=== PATIENT | male | born 1960 | race Asian ===

== ENCOUNTER 2021-04-06 16:38 | Emergency (ER) | payer OTHER ==
[~2021-04-06] VITALS: Ht 185.4 cm; Wt 93.0 kg
[2021-04-06 16:45] VITALS: BP 165/93; TEMP 98.9
[2021-04-06 17:07] LABS: PLATELET COUNT 300 K/uL (142-355)
[2021-04-06 17:15] LABS: POTASSIUM 3.8 mmol/L (3.6-5.2)
[2021-04-06 17:27] LABS: PARTIAL THROMBOPLASTIN TIME 25.8 SECONDS (24.5-33.6)
== END 2021-04-06 18:15 | disposition home or self-care (01) ==
LOC: ED 16:38
PROVIDERS: Emergency Medicine
DX: M19.011 Primary osteoarthritis, right shoulder (principal); M19.021 Primary osteoarthritis, right elbow; M16.11 Unilateral primary osteoarthritis, right hip; M25.511 Pain in right shoulder; M25.521 Pain in right elbow; M25.551 Pain in right hip
CPT/HCPCS: 80053; 82550; 83880; 84484; 85027; 85610; 85730; 93005; 96372; 99283; 99284; J1885

== ENCOUNTER 2021-05-01 18:07 | Emergency (ER) | payer OTHER ==
[~2021-05-01] VITALS: Ht 185.4 cm; Wt 93.0 kg
[2021-05-01 20:39] LABS: PLATELET COUNT 149 K/uL (142-355)
[2021-05-01 23:30] VITALS: BP 158/86; TEMP 97.7
== END 2021-05-01 23:30 | disposition short-term general hospital (02) ==
LOC: ED 18:07
PROVIDERS: Emergency Medicine Emergency Medical Services
PROC: 2W3DX1Z Immobilization of Left Lower Arm using Splint (ICD-10-PCS; principal; 2021-05-01)
DX: I63.9 Cerebral infarction, unspecified (principal); G83.14 Monoplegia of lower limb affecting left nondominant side; F17.210 Nicotine dependence, cigarettes, uncomplicated; W18.39XA Other fall on same level, initial encounter; Y92.89 Other specified places as the place of occurrence of the external cause
CPT/HCPCS: 80053; 85027; 85610; 93005; 99283